=== PATIENT | female | born 1980 | race Caucasian/White ===

== ENCOUNTER 2018-08-29 17:11 | Emergency (ER) | payer OTHER ==
[2018-08-29 17:32] LABS: BILIRUBIN,URINE NEGATIVE (NEGATIVE); GLUCOSE, URINE (UA) NEGATIVE (NEGATIVE); KETONES,URINE (UA) NEGATIVE (NEGATIVE); LEUKOCYTE ESTERASE, URINE NEGATIVE (NEGATIVE); NITRITE,URINE NEGATIVE (NEGATIVE); OCCULT BLOOD,URINE NEGATIVE (NEGATIVE); PROTEIN,URINE NEGATIVE (NEGATIVE); UROBILINOGEN,URINE 0.2 (NORMAL) E.U./dL (NORMAL)
[2018-08-29 17:38] LABS: CLARITY,URINE CLEAR (CLEAR); HCG UR QUAL NEGATIVE
--- NOTE | 2018-08-29 18:37 | ED Physician Documentation ---
PD HPI ABD PAIN - Stated complaint Stated Complaint: STOMACH PAIN - Chief complaint Chief Complaint: Abd Pain - History obtained from History obtained from: Patient - History of Present Illness Timing - onset: How many weeks ago (3) Timing - duration: Weeks (3) Timing - details: Gradual onset, Still present, Waxing and waning Quality: Cramping, Aching, Pain Location: Epigastric, LUQ Radiation: No: Chest, Lower back Improved by: Meds (using Ibuprofen and would help initially, but not improving the pain the past several days. Notes some dark stools at times the past several days.) Worsened by: Eating Associated symptoms: Melena, Loss of appetite. No: Fever, Nausea, Vomiting, Diarrhea, Chest pain, Weight loss Similar symptoms before: Has not had sx before Recently seen: Not recently seen Review of Systems Constitutional: denies: Fever, Chills Nose: denies: Rhinorrhea / runny nose, Congestion Throat: denies: Sore throat Respiratory: denies: Cough GI: reports: Abdominal Pain, Bloody / black stool. 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 08/29/18 Ondansetron Odt [Zofran] 4 mg TL Q6H PRN #10 tablet 08/29/18 Oxycodone HCl/Acetaminophen 1 each PO Q6H PRN #14 tablet 08/29/18 [Percocet 5-325 mg Tablet] Sucralfate [Carafate] 1 gm PO ACHS #60 tablet 08/29/18 - Allergies Allergies/Adverse Reactions: Allergies Allergy/AdvReac Type Severity Reaction Status Date / Time acetaminophen [From Vicodin] AdvReac Mild Edema Verified 08/29/18 17:19 hydrocodone bitartrate * AdvReac Mild Edema Verified 08/29/18 17:19 [From Vicodin] tramadol HCl * [From Ultram] AdvReac Mild Nausea Verified 08/29/18 17:19 - Social History Does the pt smoke?: No Smoking Status: Never smoker Does the pt drink ETOH?: No Does the pt have substance abuse?: No - Immunizations Immunizations are current?: Yes - POLST Patient has POLST: No PD ED PE NORMAL - Vitals Vital signs reviewed: Yes - General General: Alert and oriented X 3, No acute distress, Well developed/nourished - HEENT HEENT: Pharynx benign - Neck Neck: Supple, no meningeal sign, No adenopathy - Cardiac Cardiac: RRR, No murmur - Respiratory Respiratory: Clear bilaterally - Abdomen Abdomen: Normal bowel sounds, Soft, Non distended, No organomegaly, Other (some tender epigastric area without guarding. ) - Back Back: No CVA TTP - Derm Derm: Normal color, Warm and dry Results - Vitals Vitals: Oxygen O2 Source Room air - Labs Labs: Laboratory Tests 08/29/18 08/29/18 08/29/18 17:20 19:00 19:00 WBC 5.2 RBC 5.07 Hgb 14.1 Hct 42.9 MCV 84.7 MCH 27.9 MCHC 32.9 RDW 13.6 Plt Count 229 MPV 8.3 Neut # (Auto) 2.4 Lymph # (Auto) 2.3 [place] # (Auto) 0.4 Eos # (Auto) 0.1 Baso # (Auto) 0.0 Absolute Nucleated RBC 0.00 Nucleated RBC % 0.0 Sodium 141 Potassium 4.0 Chloride 104 Carbon Dioxide 27 Anion Gap 10.0 BUN 13 Creatinine 0.7 Estimated GFR (MDRD) 95 Glucose 98 Calcium 9.7 Total Bilirubin 0.4 AST 24 ALT 25 Alkaline Phosphatase 98 Total Protein 7.5 Albumin 4.3 Globulin 3.2 Albumin/Globulin Ratio 1.3 Lipase 38 Urine Color YELLOW Urine Clarity CLEAR Urine pH 5.0 Ur Specific [place] >=1.030 H Urine Protein NEGATIVE Urine Glucose (UA) NEGATIVE Urine Ketones NEGATIVE Urine Occult Blood NEGATIVE Urine Nitrite NEGATIVE Urine Bilirubin NEGATIVE Urine Urobilinogen 0.2 (NORMAL) Ur Leukocyte Esterase NEGATIVE Ur Microscopic Review NOT INDICATED Urine Culture Comments NOT INDICATED Urine HCG, Qual NEGATIVE PD MEDICAL DECISION MAKING - ED course Complexity details: considered differential (sounds likely gastritis and has improvement with GI cocktail. LFTs/lipase are normal. Reports maybe dark stools. Rectal deferred, with normal H/H and vitals. She did not have BM while here. Gave her hat/sample container for bringing stool sample to [facility]D for H.Pylori testing. Had been using Ibuprofen for pain, so will have her not do that. ), d/w patient Departure - Departure Disposition: 01 Home, Self Care Clinical Impression: Abdominal pain Qualifiers: Abdominal location: epigastric Qualified Code(s): R10.13 - Epigastric pain Gastritis, acute Qualifiers: Gastritis type: unspecified gastritis Gastritis bleeding: with bleeding Qualified Code(s): K29.01 - Acute gastritis with bleeding Condition: Stable Record reviewed to determine appropriate education?: Yes Instructions: ED PUD Vs Gastritis Follow-Up: Harvey Roca MD [Primary Care Provider] - Prescriptions: Lidocaine Viscous 2% [Xylocaine Viscous 2%] 5 ml PO Q4H PRN #100 ml PRN Reason: Pain Omeprazole 20 mg PO DAILY #30 tablet. Ondansetron Odt [Zofran] 4 mg TL Q6H PRN #10 tablet PRN Reason: Nausea / Vomiting Oxycodone HCl/Acetaminophen [Percocet 5-325 mg Tablet] 1 each PO Q6H PRN #14 tablet PRN Reason: pain Sucralfate [Carafate] 1 gm PO ACHS #60 tablet Comments: Drink lots of fluids and bland food. Do not take any ibuprofen as this may be continuing or worsening the gastritis. Use Prilosec acid reducing medicine daily for the next month. For the short-term over the next 5 or 6 days, add Carafate to coat the stomach 3-4 times a day. Use the lidocaine or combined with antacid in order to help with the stomach pain. You can use Tylenol. If needed can add tramadol for pain. Again no NSAIDs as will irritate the stomach. Bring a stool sample into your primary care and have them tested for Helicobacter pylori. We will send you home with a collection materials. Recheck if not improving over the next several days 3-5 days. Your blood count is normal so even though you are having some blood with this gastritis, you have a buffer margin we will still be okay if it only bleeds a little bit before is improved. Discharge Date/Time: 08/29/18 21:08
[2018-08-29] MEDS ORDERED: LIDOCAINE VISCOUS 2% 15 ML UDC MM STA (18:59)
[2018-08-29] MEDS ORDERED: MAG HYDROX/AL HYDROX/SIMETH 30 ML UDC PO STA (18:59)
[2018-08-29] MEDS ORDERED: PANTOPRAZOLE 40 MG TABLET PO STA (18:59)
[2018-08-29] MEDS ORDERED: FAMOTIDINE 20 MG TABLET PO STA (18:59)
[2018-08-29] MEDS ORDERED: ACETAMINOPHEN 325 MG TABLET PO STA (19:00)
[2018-08-29 19:24] LABS: BASOPHILS % (AUTO) 0.8 %; EOSINOPHILS # (AUTO) 0.1 10^3/uL (0.0-0.7); HGB - HEMOGLOBIN 14.1 g/dL (12.0-16.0); LYMPHOCYTES # (AUTO) 2.3 10^3/uL (1.5-3.5); LYMPHOCYTES % (AUTO) 43.8 %; MEAN CORPUSCULAR HEMOGLOBIN 27.9 pg (27.0-31.0); MEAN CORPUSCULAR HGB CONC 32.9 g/dL (32.0-36.0); MEAN CORPUSCULAR VOLUME 84.7 fL (81.0-99.0); MEAN PLATELET VOLUME 8.3 fL (7.9-10.8); MONOCYTES # (AUTO) 0.4 10^3/uL (0.0-1.0); MONOCYTES % (AUTO) 8.4 %; NEUTROPHILS # (AUTO) 2.4 10^3/uL (1.5-6.6); PLT - PLATELET COUNT 229 10^3/uL (130-450); RED BLOOD COUNT 5.07 10^6/uL (4.20-5.40); RED CELL DISTRIBUTION WIDTH 13.6 % (12.0-15.0); WHITE BLOOD COUNT 5.2 x10^3/uL (4.8-10.8)
[2018-08-29 19:31] LABS: ALBUMIN 4.3 g/dL (3.2-5.5); ALBUMIN/GLOBULIN RATIO 1.3 (1.0-2.2); BILIRUBIN,TOTAL 0.4 mg/dL (0.2-1.0); CALCIUM 9.7 mg/dL (8.5-10.3); CREATININE 0.7 mg/dL (0.4-1.0); TOTAL PROTEIN 7.5 g/dL (6.7-8.2)
[2018-08-29 20:57] VITALS: BP 137/89
== END 2018-08-29 21:08 | disposition home or self-care (01) ==
LOC: ED 17:11
DX: R10.13 Epigastric pain (principal); K29.01 Acute gastritis with bleeding
CPT/HCPCS: 36415; 80053; 81003; 81025; 83690; 85025; 99283; A9270; 81001; 87086